=== PATIENT | female | born 1985 | race Two or more races ===

== ENCOUNTER 2024-01-31 16:01 | Emergency (ER) | payer MEDICAID, OTHER ==
[~2024-01-31] VITALS: Ht 160 cm; Wt 64.5 kg
--- NOTE | 2024-01-31 16:12 | ED.PDOC ---
EDUCATION PROGRAM SPECIALIST HPI Comments HPI: Poor Historian. 38-year-old female presents to emergency department for suprapubic pain x1 day. This happened after she had placed a tampon earlier today and started feeling some discomfort and then she pulled it out an hour and a half later. She noticed that when she pulled it out that the tampon may have been stuck to the IUD. Patient has been having vaginal bleeding for about a month which has stopped for a week and then resumed again this past Sunday. Denies any STDs. Denies any . Denies any other acute symptoms. Patient has this IUD at least one year ago. Last menstrual cycle ended two weeks ago. She started bleeding again five days ago. VITALS: TEMP: 98.0 HEART RATE; 81 02 SAT; 99% on room air RR; 18 BP; 133/89 PMH: denies PSH: IUD, 2x SOCIAL HISTORY: denies tobacco use, denies etoh use, denies drug use MEDS; denies ALLERGIES; denies REVIEW OF SYSTEMS: CONSTITUTIONAL: Denies acute: fever, diaphoresis, chills, generalized weakness. HEAD: Denies acute: headache, photophobia Eyes: Denies acute: Double vision, vision loss, eye pain, eye discharge. EARS: Denies acute: tinnitus, hearing loss, ear discharge, ear pain, THROAT: Denies acute: sore throat, swelling, difficulty swallowing , pain with swallowing, change in voice. NECK: Denies acute: neck pain, neck swelling, stiff neck. HEART: Denies acute : chest pain, palpitations, LUNGS: Denies acute: SOB, wheezing, cough, hemoptysis ABDOMEN: Denies acute: Nausea, Vomiting, diarrhea, melena , hematemesis, hematochezia SKIN: Denies acute: rash, redness, lesions, itchiness. EXTREMITIES: Denies acute: calf pain, numbness, tingling, weakness, denies pain in extremity. Denies acute: Low back pain. Neuro: Denies acute: focal neurological deficit, motor or sensory focal neurological deficit, tremors, seizure like activity, confusion, dizziness, change in mental status, loss of bowel or bladder function, cauda equina like symptoms. : Denies acute: dysuria, hematuria, flank pain, increase in urinary frequency. PSYCH: Denies acute: hallucination, suicidal ideation, homicidal ideation. FEMALE: Denies acute: foul odor, unusual discharge. PHYSICAL EXAM: General: no acute distress, awake and alert. Head: normocephalic, atraumatic. Neck: supple, trachea is midline, no swelling. Throat: Normal phonation. Eyes:, no erythema, no purulent discharge, no proptosis, no icterus. Heart: regular rate, regular rhythm, no significant murmur appreciated. Lungs: no apparent respiratory distress, Able to speak in full sentences. No wheezing, no rhonchi, no crackles. No stridors Clear to auscultation bilaterally. Abdomen: Suprapubic tender to palpation, non distended, soft, no guarding, no rebound, + bowel sounds. Pelvic exam was performed in the presence of a inside trucker nurse [place]. Noted menstrual blood in the vaginal cuff. IUD is visualized. No foreign bodies otherwise present or retained tampon present. Patient tolerated the procedure well. Neuro: Awake, Alert, oriented to name, self, situation, follows commands GCS=15. Speech is normal. Skin: no petechia, no purpura, no cyanosis, non-pale, not jaundice. Lower extremities: --no - Pitting edema no deformity, no focal swelling, no calf TTP. Makes eye contact. moves all four extremities. Face: no apparent facial droop. Ambulating in the ED independently. Time Seen by MD: 16:03 Reviewed Notes: Nurses Notes, Medications, Allergies Allergies: Coded Allergies: NO KNOWN ALLERGIES (Unverified , 01/31/24) Information Source: Patient, Relative Mode of Arrival: Ambulatory Brought in by: relative Past Medical History PAST MEDICAL HISTORY: Denies Surgical History: Surgical History (Other): IUD RENAL NURSE History: Denies all RENAL NURSE Hx Family History Family History: Reviewed,noncontributory to illness Social History Smoker: Non-Smoker Alcohol: Denies ETOH Use Drugs: Denies Drug Use Lives In: Home Was a procedure done? Was a procedure done?: No Differential Diagnosis (RENAL NURSE) Vaginal Bleeding: Other (Differential diagnosis includes but not limited to DU B, menorrhea, metromenorrhagia, neoplasm, coagulopathy,, trauma, miscarriage, placenta previa, placental abruption, ) X-Ray, Labs, Meds, VS Vital Signs Date Time Temp Pulse Resp B/P (MAP) Pulse Ox O2 Delivery O2 Flow Rate FiO2 01/31/24 16:15 98.0 81 18 133/89 (104) 99 Lab Test 01/31/24 16:54 Range/Units White Blood Count 7.0 4.4-10.8 10^3/uL Red Blood Count 4.47 4.0-5.20 10^6/uL Hemoglobin 11.6 L 12.2-16.2 g/dL Hematocrit 36.1 36.0-46.0 % Mean Corpuscular Volume 80.7 80.0-100.0 fL Mean Corpuscular Hemoglobin 26.1 L 28.0-32.0 pg Mean Corpuscular Hemoglobin Concent 32.3 32.0-36.0 g/dL Red Cell Distribution Width 17.6 H 11.8-14.3 % Platelet Count 385 140-450 10^3/uL Mean Platelet Volume 8.1 6.9-10.8 fL Neutrophils (%) (Auto) 58.5 37.0-80.0 % Lymphocytes (%) (Auto) 32.7 10.0-50.0 % Monocytes (%) (Auto) 5.5 0.0-12.0 % Eosinophils (%) (Auto) 2.5 0.0-7.0 % Basophils (%) (Auto) 0.8 0.0-2.0 % Neutrophils # (Auto) 4.1 1.6-8.6 10 ^3/uL Lymphocytes # (Auto) 2.3 0.4-5.4 10 ^3/uL Monocytes # (Auto) 0.4 0-1.3 10 ^3/uL Eosinophils # (Auto) 0.2 0-0.8 10 ^3/uL Basophils # (Auto) 0.1 0-0.2 10 ^3/uL Nucleated Red Blood Cells 0.0 % Sodium Level 141 136-145 mmol/L Potassium Level 3.6 3.5-5.1 mmol/L Chloride Level 107 98-107 mmol/L Carbon Dioxide Level 24 20-31 mmol/L Anion Gap 10 5-15 Blood Urea Nitrogen 9 9-23 mg/dL Creatinine 0.83 0.550-1.02 mg/dL Glomerular Filtration Rate Calc 91 >90 mL/min BUN/Creatinine Ratio 10.8 10.0-20.0 Serum Glucose 94 74-106 mg/dL Calcium Level 9.8 8.7-10.4 mg/dL Total Bilirubin 0.5 0.2-1.0 mg/dL Aspartate Amino Transferase (AST) 11 L 13-40 U/L Alanine Aminotransferase (ALT) < 9 7-40 U/L Alkaline Phosphatase 84 46-116 U/L Total Protein 8.1 5.7-8.2 g/dL Albumin 4.6 3.2-4.8 g/dL Beta HCG, Quantitative 0.3 L 1.5-4.2 mIU/mL [place] [address] Ph: [phone] DIAGNOSTIC IMAGING Diagnostic Imaging Report : [id number] Signed PATIENT: SCARLET MAYACT: [id number] UNIT: [id number] : 1985 LOC: ER ROOM / BED: / AGE / SEX: 38 / F ADM STATUS: REG ER SERVICE 1610 ORDERING PHYSICIAN: MARKY ROBBINS DO PROCEDURE(s): PELUS - PELVIC REASON: VB, PELVIC PAIN IUD ORDER NUMBER(s): [id number], ACCESSION NUMBER(s): [id number] INDICATION: Pelvic pain TECHNIQUE: Multiple real-time grayscale transabdominal sonographic images along with color and duplex Doppler of the uterus and ovaries were obtained. COMPARISON: None FINDINGS: The uterus measures 10 x 4.9 x 3.7 cm cm. The endometrial stripe measures 0.41 cm. IUD in the endometrial canal. The right ovary measures 3.4 x 1.9 x 2.4 cm. Right ovarian volume is 7.9 cc. The left ovary measures 3.6 x 1.5 x 3.1 cm. Left ovarian volume is 8.6 cc cm. Subsequent color and duplex Doppler interrogation of the ovaries demonstrated symmetric vascular flow to both ovaries, though this does not exclude the possib ility of torsion due to the dual blood supply. IMPRESSION: 1. Uterus appears normal 2. IUD in the endometrial canal. 3. Small nabothian cyst in cervix ATED BY: DL CHACON Jr., DO DICTATED DATE/TIME: 01/31/24 1650 SIGNED BY: DL CHACON Jr., DO SIGNED DATE/TIME: 01/31/241649 CC: Time of 1ST Reevaluation: 20:56 Reevaluation 1ST: Unchanged Patient Education/Counseling: Diagnosis, Treatment Family Education/Counseling: No Family Present Comments Patient presented with the above HPI.---vaginal bleed---workup was initiated. patient was found with the above mentioned diagnosis. Patient ED course and VS have been stabilized. Patient has been reassessed in the ED and remained in a stable condition. Pertinent incidental findings were discussed with the patient and/or family. Patient/family voices understanding and is agreeable with plan. Patient has been observed in the ED adequate length of time to insure improvement/stability. patient was discharged home in a stable condition. IUD is in place. No foreign body was visualized at the speculum exam. All the reports of any imaging studies that were ordered by myself were reviewed by myself. Departure 1 Departure Time of Disposition: 20:44 Impression: Primary Impression: DUB (dysfunctional uterine bleeding) Additional Impression: Anemia Disposition: 01 HOME / SELF CARE / HOMELESS Condition: Stable Additional Instructions: Additional discharge instructions: You MUST follow-up with your primary care/family doctor in 1 to 2 days. If you are unable to see your primary care/family doctor, please return to our emergency room for re-assessment and re-evaluation in 1 to 2 days. Return to the emergency room here in our facility or to the nearest ER [facility] if your symptoms change or worsen. CONSULTATIONS: you MUST Follow-up for consultation as soon as possible with: -PRABHAKAR Gyne doctor in 1-2 days. You MUST call the consultants office yourself to make an appointment. You may need to arrange that through your insurance and/or your primary/family doctor. If you are unable to see the product marketing consultant in 1 to 2 days, you must return to our emergency room (or any other ER of your choice) for re-assessment and re- evaluation. Adequate fluid hydration. Absolute pelvic rest Take daily iron supplements. Repeat CBC in 48-72 hours. Below is a copy of your radiological report for follow up: [address] [address] Ph: [phone] DIAGNOSTIC IMAGING Diagnostic Imaging Report : [id number] Signed PATIENT: MARILYN MAYA ACCT: [id number] UNIT: [id number] : 1985 LOC: ER ROOM / BED: / AGE / SEX: 38 / F ADM STATUS: REG ER SERVICE 1610 ORDERING PHYSICIAN: MARKY ROBBINS DO PROCEDURE(s): PELUS - PELVIC REASON: VB, PELVIC PAIN IUD ORDER NUMBER(s): [id number], ACCESSION NUMBER(s): [id number] INDICATION: Pelvic pain TECHNIQUE: Multiple real-time grayscale transabdominal sonographic images along with color and duplex Doppler of the uterus and ovaries were obtained. COMPARISON: None FINDINGS: The uterus measures 10 x 4.9 x 3.7 cm cm. The endometrial stripe measures 0.41 cm. IUD in the endometrial canal. The right ovary measures 3.4 x 1.9 x 2.4 cm. Right ovarian volume is 7.9 cc. The left ovary measures 3.6 x 1.5 x 3.1 cm. Left ovarian volume is 8.6 cc cm. Subsequent color and duplex Doppler interrogation of the ovaries demonstrated s ymmetric vascular flow to both ovaries, though this does not exclude the possibility of torsion due to the dual blood supply. IMPRESSION: 1. Uterus appears normal 2. IUD in the endometrial canal. 3. Small nabothian cyst in cervix ATED BY: DL CHACON Jr., DO DICTATED DATE/TIME: 01/31/241649 SIGNED BY: DL CHACON Jr., SIGNED DATE/TIME: 01/31/24 165 CC: Discharged With: Self Critical Care Note Critical Care Time?: No I personally scribed for MARKY ROBBINS DO ([email or web address]) on 01/31/24 at 16:11. Electronically submitted by Sofia Carolina ([facility] I personally scribed for MARKY ROBBINS DO ([email or web address]) on 01/31/24 at 16:55. Electronically submitted by Sofia Carolina ([facility] I personally scribed for MARKY ROBBINS DO ([email or web address]) on 01/31/24 at 18:51. [facility] I personally scribed for MARKY ROBBINS DO ([email or web address]) on 01/31/24 at 20:51. Electronically submitted by Sofia Carolina ([facility]). MARKY ROBBINS DO Jan 31, 2024 16:11
--- NOTE | 2024-01-31 16:52 | DVH ---
INDICATION: Pelvic pain TECHNIQUE: Multiple real-time grayscale transabdominal sonographic images along with color and duplex Doppler of the uterus and ovaries were obtained. COMPARISON: None FINDINGS: The uterus measures 10 x 4.9 x 3.7 cm cm. The endometrial stripe measures 0.41 cm. IUD in t he endometrial canal. The right ovary measures 3.4 x 1.9 x 2.4 cm. Right ovarian volume is 7.9 cc. The left ovary measures 3.6 x 1.5 x 3.1 cm. Left ovarian volume is 8.6 cc cm. Subsequent color and duplex Doppler interrogation of the ovaries demonstrated symmetric vascular flow to both ovaries, though this does not exclude the possibility of torsion due to the dual blood suppl y. IMPRESSION: 1. Uterus appears normal 2. IUD in the endometrial canal. 3. Small nabothian cyst in cervix
[2024-01-31 17:25] LABS: Basophils # (auto) 0.1 10 ^3/uL (0-0.2); Basophils % (auto) 0.8 % (0.0-2.0); Eosinophils # (auto) 0.2 10 ^3/uL (0-0.8); Eosinophils % (auto) 2.5 % (0.0-7.0); Hematocrit 36.1 % (36.0-46.0); Hemoglobin 11.6 g/dL (12.2-16.2); Lymphocytes # (auto) 2.3 10 ^3/uL (0.4-5.4); Lymphocytes % (auto) 32.7 % (10.0-50.0); Mean Corpuscular Hemoglobin 26.1 pg (28.0-32.0); Mean Corpuscular Hgb Conc. 32.3 g/dL (32.0-36.0); Mean Corpuscular Volume 80.7 fL (80.0-100.0); Monocytes # (auto) 0.4 10 ^3/uL (0-1.3); Monocytes % (auto) 5.5 % (0.0-12.0); Neutrophils # (auto) 4.1 10 ^3/uL (1.6-8.6); Neutrophils % (auto) 58.5 % (37.0-80.0); Platelet Count (auto) 385 10^3/uL (140-450); Red Blood Cells 4.47 10^6/uL (4.0-5.20); Red Cell Distribution Width 17.6 % (11.8-14.3)
[2024-01-31 17:44] LABS: Albumin 4.6 g/dL (3.2-4.8); Alkaline Phosphatase 84 U/L (46-116); Anion Gap 10 (5-15); Aspartate Aminotransferase 11 U/L (13-40); BUN/Creatinine Ratio 10.8 (10.0-20.0); Bilirubin, Total 0.5 mg/dL (0.2-1.0); Blood Urea Nitrogen 9 mg/dL (9-23); Calcium 9.8 mg/dL (8.7-10.4); Carbon Dioxide 24 mmol/L (20-31); Chloride 107 mmol/L (98-107); Glucose 94 mg/dL (74-106); Potassium 3.6 mmol/L (3.5-5.1); Sodium 141 mmol/L (136-145); Total Protein 8.1 g/dL (5.7-8.2)
[2024-01-31 18:04] LABS: Alanine Aminotransferase < 9 U/L (7-40)
[2024-01-31 21:00] VITALS: BP 115/85; PULSE 77; RESP 14; TEMP 99.8; O2SAT 95
== END 2024-01-31 21:27 | disposition home or self-care (01) ==
LOC: ER 16:01
DX: D64.9 Anemia, unspecified (principal); N88.8 Other specified noninflammatory disorders of cervix uteri; N93.8 Other specified abnormal uterine and vaginal bleeding; R10.2 Pelvic and perineal pain
CPT/HCPCS: 36415; 76856; 80053; 84702; 85025; 86850; 86900; 86901